=== PATIENT | female | born 2000 | race Caucasian/White ===

== ENCOUNTER 2019-12-04 08:46 | Emergency (ER) | payer OTHER, SELFPAY ==
[2019-12-04 08:54] VITALS: BP 105/63; PULSE 87; RESP 14; TEMP 37.3; O2SAT 97
--- NOTE | 2019-12-04 08:58 | ED.URI ---
HPI - URI/Sore Throat General Chief Complaint: Upper Respiratory Infection Stated Complaint: sore throat Time Seen by Provider: 12/04/19 09:03 Source: patient and RN notes reviewed Mode of arrival: ambulatory Limitations: no limitations History of Present Illness HPI Narrative: This is a 19 years old female presents to the office for an evaluation of sore throat for one week. Associated with feeling malaise, nauseous and diarrhea. Denies sick contact. She has been taking Benadryl and ibuprofen for her symptoms. Denies direct contact with COVID with patients. She requests a work note because she called off today. Related Data Home Medications Medication Instructions Recorded Confirmed norethindrone-e.estradiol-iron 1 tablet PO DAILY 04/24/19 12/04/19 [05/15 (28)] vit no.180-zvmi-rmbul 1 tablet PO DAILY 12/04/19 12/04/19 [Classic ] sertraline 50 mg PO DAILY 12/04/19 12/04/19 Allergies Allergy/AdvReac Type Severity Reaction Status Date / Time coconut Allergy Unknown Rash Verified 12/04/19 08:56 latex Allergy Unknown Rash Verified 12/04/19 08:56 Sulfa (Sulfonamide Allergy Unknown Rash Verified 12/04/19 08:56 Antibiotics) Review of Systems Review of Systems: Narrative: CONSTITUTIONAL: Denies fever EYES: Denies redness, discharge. ENT: Reports painful to swallow, denies ears pain CARDIOVASCULAR: Denies chest pain, palpitation, edema. RESPIRATORY: Denies dyspnea, wheezing, cough GASTROINTESTINAL: Denies abdominal pain, vomiting. Reports nausea at times with a little diarrhea; denies bloody stool. SKIN: Denies rash MUSCULOSKELETAL: Denies acute back pain NEUROLOGIC: Denies lightheaded All other systems reviewed are negative, except as documented in HPI. PMFSH Past Medical History Medical History Acid reflux Anxiety Surgical History Surgical History Hx of tonsillectomy Comments At time of signature, I agree with nursing past medical, surgical, social and family history. There is no relevant family history pertinent to the presenting complaint. Exam Narrative: Exam Narrative: GENERAL: This is a well-nourished, well-developed patient, in no apparent distress. EYES: Sclera clear/white. Vision is grossly intact. EARS: External ears normal, auditory canals clear and without drainage, TMs normal without perforation. Hearing grossly intact. NOSE: External nose normal with no obvious nasal discharge, nares without redness, no rhinorrhea. THROAT: Mucous membranes moist, posterior pharynx erythema with drainage NECK: Neck supple, non-tender without lymphadenopathy, masses or thyromegaly. CARDIOVASCULAR: Regular rate and rhythm without murmurs, gallops, or rubs. RESPIRATORY: Clear to auscultation. Breath sounds equal bilaterally. No wheezes, rales, or rhonchi. GASTROINTESTINAL: Abdomen soft, non-tender, nondistended. Bowel sounds are active. No hepato-splenomegaly, or palpable masses. No guarding. SKIN: warm, intact with no suspicious lesions or rash, good texture and turgor. NEURO: awake, alert, and oriented to person, place and time. There were no obvious focal neurologic abnormalities. Steady gait Fiatt Coma Scale Eye Opening: Spontaneous 4 Fiatt Coma Scale Motor: Obeys Commands 6 Jabari Coma Scale Verbal: Oriented 5 Course Vital Signs Vital signs: Vital Signs Temperature 99.2 F 12/04/19 08:54 Pulse Rate 87 12/04/19 08:54 Respiratory Rate 14 12/04/19 08:54 Blood Pressure 105/63 12/04/19 08:54 Pulse Oximetry 97 12/04/19 08:54 Temperature 99.2 F 12/04/19 08:54 Pulse Rate 87 12/04/19 08:54 Respiratory Rate 14 12/04/19 08:54 Blood Pressure 105/63 12/04/19 08:54 Pulse Oximetry 97 12/04/19 08:54 MDM - URI/Sore Throat MDM Narrative Medical decision making narrative: Discharge instructions reviewed with patient, as well as pr
== END 2019-12-04 09:20 | disposition home or self-care (01) ==
PROVIDERS: Emergency Provider Nurse Practitioner
DX: J02.9 Acute pharyngitis, unspecified (principal); Z20.828 Contact with and (suspected) exposure to other viral communicable diseases; K21.9 Gastro-esophageal reflux disease without esophagitis; F41.9 Anxiety disorder, unspecified
CPT/HCPCS: 87081; 87635; 87880; 99213; C9803; G0463; U0003

== ENCOUNTER → 2019-12-04 09:33 | Outpatient (NON) | payer OTHER, SELFPAY ==
[2019-12-04 18:20] LABS: SARS-CoV-2 RNA PCR Positive
== END ==
PROVIDERS: Visit Provider Nurse Practitioner
DX: U07.1 COVID-19 (principal)
CPT/HCPCS: 87635; C9803; U0003